=== PATIENT | male | born 1965 | race Two or more races ===

== ENCOUNTER 2020-12-12 18:52 | Emergency (ER) | payer MEDICAID ==
[~2020-12-12] VITALS: Ht 162.6 cm; Wt 68.2 kg
[2020-12-12 19:15] VITALS: BP 120/56
--- NOTE | 2020-12-12 19:26 | NUR ---
PT BELONGINGS STORED OUTSIDE OF ER IN HAZMIT SHOWER AREA
[2020-12-12] MEDS ORDERED: gentamicin 0.1% topical ointment 15gm TP ONE (20:50)
[2020-12-12] MEDS ORDERED: CEPH-585 PO (21:56)
== END 2020-12-12 22:06 | disposition home or self-care (01) ==
LOC: ER 18:53
DX: S31.000A Unspecified open wound of lower back and pelvis without penetration into retroperitoneum, initial encounter (principal); F17.200 Nicotine dependence, unspecified, uncomplicated; Z72.89 Other problems related to lifestyle; X58.XXXA Exposure to other specified factors, initial encounter; Y93.89 Activity, other specified; Y92.89 Other specified places as the place of occurrence of the external cause; Y99.8 Other external cause status
CPT/HCPCS: 99283